=== PATIENT | female | born 1955 | race Caucasian/White ===

== ENCOUNTER → 2016-06-06 | Outpatient (CLI) | payer OTHER ==
--- NOTE | ~2016-06-06 | EE ---
Unit #: [id number] #: [id number] Patient: LYNN NG [id number] [address] [address] [id number] O MR#: [id number] NAME: LYNN NG : 1955 SEX: F STUDY DATE/TIME: 06/06/2016 UNIT: CEEG ROOM: STUDY DESCRIPTION: EEG Attending Physician: Eugene Longo M.D. Referring Physician: Eugene Longo M.D. Primary Care Physician: Eugene Longo M.D. NEURODIAGNOSTICS REPORT EXAM EEG REASON FOR THE STUDY Headaches and poor balance. EEG DESCRIPTION This is an outpatient, digitally recorded multi-montage adult EEG with leads placed according to the International 10-20 System. Hyperventilation and photic stimulation was attempted. This EEG shows 10 to 11 Hz posterior background. There was significant beta artifact. The patient did fall asleep and later on some stage 2 sleep was seen briefly. Hyperventilation was attempted but I did not see any significant changes. Photic stimulation was attempted in intermittent stepwise pattern up to the flash frequency of 30 Hz but I did not see any driving, asymmetry or paroxysmal activity. IMPRESSION This is an essentially normal adult awake and asleep EEG. There is some beta and muscle artifact which is likely secondary to medication and movement. Nothing suggesting seizure or status or explanation of her symptoms. Clinical correlation is recommended. Dictated by... Nickolas Spears/david TD: 06/06/2016 12:20 JOB #: [id number] Unit #: [id number] #: [id number] Patient: LYNN NG NEURODIAGNOSTICS REPORT Page 1 of 1 X Zoe Martinez MD NEURODIAGNOSTICS REPORT
== END | disposition home or self-care (01) ==
LOC: CEEG 08:15
DX: R51 Headache (principal); R42 Dizziness and giddiness; R20.9 Unspecified disturbances of skin sensation
CPT/HCPCS: 95816